=== PATIENT | male | born 1960 | race Caucasian/White ===

== ENCOUNTER 2020-03-27 07:45 | Outpatient (REF) | payer OTHER, SELFPAY ==
[2020-03-27 10:32] LABS: Basophils Percent Auto 0.2 % (0-2); Eosinophils Absolute Auto 0.1 X10*3/uL (0.0-0.4); Eosinophils Percent Auto 1.8 % (0-4); Hematocrit 43.8 % (42-52); Imm Gran Abs Auto 0.01 X10*3/uL (0.00-0.03); Imm Gran Pct Auto 0.2 % (0.0-0.4); Lymphocytes Absolute Auto 1.3 X10*3/uL (1.2-4.9); Lymphocytes Percent Auto 30.2 % (20-40); MANUAL DIFF FLAG NO; Mean Corpuscular HGB Conc 34.2 g/dl (31.0-36.0); Mean Corpuscular Volume 87.6 fL (80-98); Mean Platelet Volume 11.8 fL (9.4-12.4); Monocytes Absolute Auto 0.4 X10*3/uL (0.1-1.2); Monocytes Percent Auto 9.3 % (2-11); Neutrophils Absolute Auto 2.6 X10*3/uL (2.0-8.3); Neutrophils Percent Auto 58.3 % (45-73); Platelet Count 158 X10*3/uL (160-400); Red Cell Distribution Width 13.8 % (11.0-16.0); White Blood Count 4.4 X10*3/uL (4.8-10.8)
[2020-03-27 11:01] LABS: Alanine Aminotransferase 54 U/L (0-40); Albumin Level 4.8 g/dL (3.5-5.0); Alkaline Phosphatase 135 U/L (39-117); Anion Gap 13 (12-20); Aspartate Amino Transferase 34 U/L (5-37); Bilirubin Total 0.8 mg/dL (0.0-1.0); Blood Urea Nitrogen 14 mg/dL (9-16); Calcium 9.3 mg/dL (8.4-10.2); Carbon Dioxide 31 mmol/L (22-29); Chloride 105 mmol/L (96-108); Cholesterol 231 mg/dL; Estimated Glomerular Filt Rate > 60; Glucose Fasting 107 mg/dL (60-99); HDL Cholesterol 49 mg/dL; LDL Cholesterol Calculated 152 mg/dl; Potassium 4.5 mmol/l (3.3-5.1); Sodium 144 mmol/L (135-145); Total Protein 7.5 g/dL (6.5-8.0); Triglycerides 153 mg/dL
[2020-03-27 11:03] LABS: PSA,Total (Free>4and<10) 0.97 ng/mL (0.00-4.00); TSH reflex Free T4 5.11 mIU/mL (0.32-4.0)
[2020-03-27 11:41] LABS: Free T4 (Free Thyroxine) 0.88 ng/dL (0.71-1.85)
== END 2020-03-27 07:46 | disposition home or self-care (01) ==
LOC: HO.WFDLDS 07:45
PROVIDERS: PCP Internal Medicine; Visit Provider Physician Assistant
DX: E78.5 Hyperlipidemia, unspecified (principal); R73.01 Impaired fasting glucose; R97.20 Elevated prostate specific antigen [PSA]; Z83.49 Family history of other endocrine, nutritional and metabolic diseases
CPT/HCPCS: 36415; 80053; 80061; 84153; 84439; 84443; 85025

== ENCOUNTER 2020-07-20 14:29 | Outpatient (REF) | payer OTHER, SELFPAY ==
[2020-07-20 19:16] LABS: Free T4 (Free Thyroxine) 1.12 ng/dL (0.71-1.85); Thyroid Stimulating Hormone 0.31 uIU/mL (0.32-4.0)
== END 2020-07-20 14:30 | disposition home or self-care (01) ==
LOC: HO.MANLDS 14:29
PROVIDERS: PCP Internal Medicine; Visit Provider Internal Medicine
DX: E03.9 Hypothyroidism, unspecified (principal)
CPT/HCPCS: 36415; 84439; 84443

== ENCOUNTER 2021-01-02 08:10 | Outpatient (REF) | payer OTHER, SELFPAY ==
[2021-01-02 10:47] LABS: Cholesterol 239 mg/dL; HDL Cholesterol 51 mg/dL; LDL Cholesterol Calculated 163 mg/dl; Triglycerides 125 mg/dL
[2021-01-02 11:12] LABS: Free T4 (Free Thyroxine) 0.95 ng/dL (0.71-1.85); Thyroid Stimulating Hormone 5.56 uIU/mL (0.32-4.0)
== END 2021-01-02 08:11 | disposition home or self-care (01) ==
LOC: HO.WFDLDS 08:10
PROVIDERS: PCP Physician Assistant; Visit Provider Physician Assistant
DX: Z00.00 Encounter for general adult medical examination without abnormal findings (principal); E03.9 Hypothyroidism, unspecified
CPT/HCPCS: 36415; 80061; 84439; 84443

== ENCOUNTER 2021-02-13 07:17 | Outpatient (REF) | payer OTHER, SELFPAY ==
--- NOTE | ~2021-02-13 | XR_ITS ---
EXAMINATION: XR ELBOW, RIGHT CLINICAL INFORMATION: Pain and stiffness. History of previous elbow injury. COMPARISON: None TECHNIQUE: AP, lateral, and oblique views of the right elbow. FINDINGS: The radial head is absent. No fracture or dislocation is seen. 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 There is a joint effusion. There are some well-corticated soft tissue ossifications adjacent to the lateral humeral epicondyle and absent radial head. There is an elbow joint effusion. There are multiple small soft tissue foreign bodies seen in the posterior to the elbow joint. XR/XR elbow RT min 3V IMPRESSION: Absent radial head. 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 Multiple small soft tissue foreign bodies posterior to the elbow joint.
--- NOTE | ~2021-02-13 | XR_ITS ---
EXAMINATION: XR HAND, RIGHT CLINICAL INFORMATION: Right hand contracture COMPARISON: None TECHNIQUE: PA, lateral, and oblique views of the right hand. FINDINGS: The bones are osteopenic. No fracture or dislocation is seen. Joint spaces are normal. Soft tissues are normal. XR/XR hand RT min 3V IMPRESSION: Osteopenia. Otherwise unremarkable exam.
== END 2021-02-13 07:18 | disposition home or self-care (01) ==
LOC: HO.XRAY 07:17
PROVIDERS: PCP Internal Medicine; Visit Provider Physician Assistant
DX: M25.521 Pain in right elbow (principal); M25.541 Pain in joints of right hand
CPT/HCPCS: 73080; 73130

== ENCOUNTER 2021-03-19 07:58 | Outpatient (REF) | payer OTHER, SELFPAY | END 2021-03-19 07:59 | disposition home or self-care (01) | LOC: HO.WFDLDS 07:58 | PROVIDERS: Visit Provider Urology | DX: Z12.5 Encounter for screening for malignant neoplasm of prostate (principal); N40.1 Benign prostatic hyperplasia with lower urinary tract symptoms | CPT/HCPCS: 36415; 84153 ==

== ENCOUNTER 2021-07-19 08:06 | Outpatient (REF) | payer OTHER, SELFPAY ==
[2021-07-19 12:01] LABS: Cholesterol 214 mg/dL; HDL Cholesterol 48 mg/dL; LDL Cholesterol Calculated 142 mg/dl; Triglycerides 123 mg/dL
[2021-07-19 12:36] LABS: TSH reflex Free T4 1.71 uIU/mL (0.32-4.0)
[2021-07-22 14:56] LABS: Free Prostate Spec Ag 0.3 ng/mL; Percent Free Prostate Spec Ag 21 % (calc) (>25); Prostate Specific Ag Total 1.4 ng/mL (< OR = 4.0)
== END 2021-07-19 08:07 | disposition home or self-care (01) ==
LOC: HO.WFDLDS 08:06
PROVIDERS: Visit Provider Physician Assistant
DX: Z12.5 Encounter for screening for malignant neoplasm of prostate (principal); E03.9 Hypothyroidism, unspecified; E78.5 Hyperlipidemia, unspecified; R97.20 Elevated prostate specific antigen [PSA]
CPT/HCPCS: 36415; 80061; 84154; 84443

== ENCOUNTER 2022-01-21 07:58 | Outpatient (REF) | payer OTHER, SELFPAY ==
[2022-01-21 12:04] LABS: Cholesterol 216 mg/dL; HDL Cholesterol 47 mg/dL; LDL Cholesterol Calculated 145 mg/dl; Triglycerides 122 mg/dL
[2022-01-21 12:29] LABS: Free T4 (Free Thyroxine) 1.04 ng/dL (0.71-1.85); Thyroid Stimulating Hormone 1.31 uIU/mL (0.32-4.0)
[2022-01-23 12:21] LABS: Free Prostate Spec Ag 0.3 ng/mL; Percent Free Prostate Spec Ag 33 % (calc) (>25); Prostate Specific Ag Total 0.9 ng/mL (< OR = 4.0)
== END 2022-01-21 07:59 | disposition home or self-care (01) ==
LOC: HO.WFDLDS 07:58
PROVIDERS: Visit Provider Physician Assistant
DX: E03.9 Hypothyroidism, unspecified (principal); E78.5 Hyperlipidemia, unspecified; R97.20 Elevated prostate specific antigen [PSA]
CPT/HCPCS: 36415; 80061; 84154; 84439; 84443

== ENCOUNTER 2022-07-07 15:17 | Outpatient (REF) | payer OTHER, SELFPAY ==
--- NOTE | ~2022-07-07 | XR_ITS ---
EXAMINATION: XR LUMBOSACRAL SPINE CLINICAL INFORMATION: Radiculopathy COMPARISON: None available. TECHNIQUE: Three views of the lumbosacral spine. FINDINGS: Mild curvature of the mid lumbar spine to the left. Bone alignment is otherwise normal. No fracture or dislocation. Mild degenerative disc disease and spondylosis at T12-L1, L1-L2 and L2-L3. Lower lumbar spine facet arthritis. Left pelvic calcification measuring 3 mm, question calcified phlebolith versus distal ureteral stone. XR/XR lumbar spine 2-3V IMPRESSION: Degenerative changes.
== END 2022-07-07 15:18 | disposition home or self-care (01) ==
LOC: HO.XRAY 15:17
PROVIDERS: PCP Internal Medicine; Visit Provider Physician Assistant
DX: M54.16 Radiculopathy, lumbar region (principal)
CPT/HCPCS: 72100

== ENCOUNTER 2022-07-08 08:08 | Outpatient (REF) | payer OTHER, SELFPAY ==
[2022-07-08 10:36] LABS: MANUAL DIFF FLAG NO
[2022-07-08 10:41] LABS: Basophils Percent Auto 0.5 % (0-2); Eosinophils Absolute Auto 0.1 X10*3/uL (0.0-0.4); Eosinophils Percent Auto 2.8 % (0-4); Hematocrit 42.2 % (42.0-52.0); Hemoglobin 14.8 g/dl (14.0-18.0); Imm Gran Abs Auto 0.02 X10*3/uL (0.00-0.03); Imm Gran Pct Auto 0.5 % (0.0-0.4); Lymphocytes Absolute Auto 1.1 X10*3/uL (1.2-4.9); Lymphocytes Percent Auto 25.3 % (20-40); Mean Corpuscular HGB Conc 35.1 g/dl (31.0-36.0); Mean Corpuscular Hemoglobin 31.2 pg (27.0-33.0); Mean Platelet Volume 11.5 fL (9.4-12.4); Monocytes Absolute Auto 0.4 X10*3/uL (0.1-1.2); Monocytes Percent Auto 9.4 % (2-11); Neutrophils Absolute Auto 2.6 x10*3/uL (2.0-8.3); Neutrophils Percent Auto 61.5 % (45-73); Platelet Count 166 X10*3/uL (160-400); Red Blood Count 4.74 X10*6/uL (4.60-5.80); Red Cell Distribution Width 13.8 % (11.0-16.0); White Blood Count 4.3 X10*3/uL (4.8-10.8)
[2022-07-08 11:18] LABS: Alanine Aminotransferase 40 U/L (0-40); Albumin Level 4.4 g/dL (3.5-5.0); Alkaline Phosphatase 117 U/L (39-117); Anion Gap 12 (12-20); Aspartate Amino Transferase 28 U/L (5-37); Bilirubin Total 0.7 mg/dL (0.0-1.0); Blood Urea Nitrogen 12 mg/dL (9-16); Carbon Dioxide 27 mmol/L (22-29); Chloride 107 mmol/L (96-108); Cholesterol 206 mg/dL; Estimated Glomerular Filt Rate > 60; Glucose Random 86 mg/dL (60-115); HDL Cholesterol 45 mg/dL; LDL Cholesterol Calculated 128 mg/dl; Sodium 142 mmol/L (135-145); Total Protein 6.7 g/dL (6.5-8.0); Triglycerides 166 mg/dL
[2022-07-08 11:35] LABS: Prostate Specific Antigen 0.85 ng/mL (<0.05-4.0)
== END 2022-07-08 08:09 | disposition home or self-care (01) ==
LOC: HO.WFDLDS 08:08
PROVIDERS: Visit Provider Physician Assistant
DX: Z00.00 Encounter for general adult medical examination without abnormal findings (principal); Z12.5 Encounter for screening for malignant neoplasm of prostate; Z20.2 Contact with and (suspected) exposure to infections with a predominantly sexual mode of transmission
CPT/HCPCS: 36415; 80053; 80061; 84153; 85025

== ENCOUNTER 2022-07-21 10:32 | Outpatient (REF) | payer OTHER, SELFPAY ==
[2022-07-21 14:13] LABS: Appearance Urine Clear; Color Urine Yellow; Glucose Urine UA Negative (Negative); Leukocyte Esterase Urine Negative (Negative); Nitrite Urine Negative (Negative); Specific Gravity - Urine 1.015 (1.005-1.025); Urine Blood Negative (Negative); Urine Ketones Negative (Negative); Urine Protein Negative (Neg-Trace)
[2022-07-21 14:16] LABS: Bacteria Urine None Seen (None Seen); Hyaline Casts Urine 0-2 /LPF (0-2); RBC Urine 0-2 /HPF (0-2); Squamous Epithelial Cell Urine 0-2 /HPF (0-2); WBC Urine 0-5 /HPF (0-5)
== END 2022-07-21 10:33 | disposition home or self-care (01) ==
LOC: HO.WFDLNP 10:32
PROVIDERS: Visit Provider Internal Medicine
DX: R30.9 Painful micturition, unspecified (principal)
CPT/HCPCS: 81001

== ENCOUNTER 2022-07-22 14:11 | Outpatient (REF) | payer OTHER, SELFPAY ==
--- NOTE | ~2022-07-22 | CT_ITS ---
EXAMINATION: CT abdomen pelvis wo IV con CLINICAL INFORMATION: Reason for Exam right flank pain COMPARISON: No prior CT available for comparison. TECHNIQUE: Multidetector volumetric imaging was performed from the superior aspect of the liver through the pubic symphysis noncontrasted study. Sagittal and coronal reformatted images were obtained on the technologist's workstation. This CT examination was performed using dose optimization techniques as appropriate, variously including the following: *Automated exposure control *Adjustment of mA and/or kV according to patient size (this includes techniques or standardized protocols for targeted exams where dose is matched to indication/reason for exam; i.e. extremities or head) *Use of iterative reconstruction technique DLP: 422 mGy-cm FINDINGS: LOWER THORAX: Included lung bases are clear. HEPATOBILIARY: There is hypodensity structure probably a cyst in the right lobe of the liver measures 1.7 x 1.1 cm, not well characterized due to lack of contrast, liver otherwise unremarkable. GALLBLADDER: Gallbladder unremarkable. SPLEEN: Spleen is borderline enlarged measuring up to 12.6 x 8.7 cm. No focal splenic lesion. PANCREAS: No focal mass or ductal dilatation. STOMACH AND GASTROINTESTINAL TRACT: Stomach is grossly unremarkable. There is diverticulosis especially of the sigmoid colon without CT evidence of acute diverticulitis. No CT evidence of appendicitis. ADRENALS: No adrenal nodules. KIDNEYS/URETERS: There is mild to moderate left hydronephrosis with a transition at the UPJ, no obstructing stone however is present this could be sequela of recently passed stone, nephritis, crossing vessel, among others. Perinephric fat remain clear. Right kidney is normal unremarkable. Both ureters normal in size. URINARY BLADDER: Partially decompressed. PELVIC VISCERA: Unremarkable PERITONEUM: No free air or fluid. LYMPH NODES: No lymphadenopathy. VASCULAR:Abdominal aorta normal in size, no aneurysm found. BONES, ABDOMINAL WALL AND SOFT TISSUES: Age-appropriate changes of the spine and skeletal system, no destructive osteolytic or osteosclerotic bone lesion found CT/CT abdomen pelvis wo IV con IMPRESSION: * Mild to moderate left hydronephrosis with transition at the ureteropelvic junction, no obstructing stone found , this could be sequela of recently passed stone, nephritis, crossing vessel, congenital among others, if patient remain symptomatic may consider correlation with follow-up CT with contrast, CT urogram. * Diverticulosis without evidence of acute diverticulitis. * Hypodense structure in the right lobe of the liver probably a cyst, not well characterized due to lack of contrast. * Spleen is borderline enlarged.
== END 2022-07-22 14:12 | disposition home or self-care (01) ==
LOC: HO.CT 14:11
PROVIDERS: PCP Internal Medicine; Visit Provider Internal Medicine
DX: N20.2 Calculus of kidney with calculus of ureter (principal)
CPT/HCPCS: 74176

== ENCOUNTER 2022-07-24 19:03 | Outpatient (REF) | payer OTHER, SELFPAY ==
--- NOTE | ~2022-07-24 | MR_ITS ---
EXAMINATION: MR LUMBAR SPINE WITHOUT CONTRAST CLINICAL INFORMATION: Radiculopathy. Evaluate for disc herniation. COMPARISON: X-ray dated 07/07/2022. TECHNIQUE: Multiplanar, multisequence imaging was obtained. FINDINGS: VERTEBRAL BODIES AND PARASPINAL STRUCTURES: The marrow signal is heterogeneous with regions of fatty change. No compression fractures identified. There is a mild anterolisthesis at the L4-L5 level. No marrow or soft tissue edema is seen. The paraspinal soft tissues are normal. CONUS MEDULLARIS AND CAUDA EQUINE: The distal cord, conus tip, and cauda equina nerve roots are normal. SPINAL LEVELS: L1-L2: Small right paracentral disc protrusion and mild diffuse disc bulge with mild facet arthropathy. No central canal stenosis or foraminal narrowing. L2-L3: Small central disc protrusion and mild facet arthropathy. No central canal stenosis or foraminal narrowing. L3-L4: Mild facet arthropathy. No disc abnormality. No central canal stenosis or foraminal encroachment. L4-L5: Mild anterolisthesis and endplate spurring with a mild generalized disc bulge and facet arthropathy. No central canal stenosis. Mild bilateral foraminal narrowing. L5-S1: Shallow posterior disc bulge and mild facet arthropathy without central canal stenosis or foraminal narrowing. MR/MR lumbar spine wo con IMPRESSION: Mild multilevel lumbar spondylosis. Small disc protrusions at the L1-L2 and L2-L3 levels. Mild anterolisthesis and disc bulge at the L4-L5 level with mild foraminal encroachment. No central canal stenosis.
== END 2022-07-24 19:04 | disposition home or self-care (01) ==
LOC: HO.MRI 19:03
PROVIDERS: PCP Internal Medicine; Visit Provider Physician Assistant
DX: M54.16 Radiculopathy, lumbar region (principal)
CPT/HCPCS: 72148

== ENCOUNTER 2022-08-13 16:20 | Outpatient (REF) | payer OTHER, SELFPAY ==
[2022-08-13 19:17] LABS: Appearance Urine Clear; Color Urine Yellow; Glucose Urine UA Negative (Negative); Leukocyte Esterase Urine Negative (Negative); Nitrite Urine Negative (Negative); PH 5.5 (5.0-9.0); Specific Gravity - Urine 1.025 (1.005-1.025); Urine Blood Negative (Negative); Urine Ketones Negative (Negative); Urine Protein Negative (Neg-Trace)
== END 2022-08-13 16:21 | disposition home or self-care (01) ==
LOC: HO.MANLNP 16:20
PROVIDERS: Visit Provider Physician Assistant
DX: N13.2 Hydronephrosis with renal and ureteral calculous obstruction (principal)
CPT/HCPCS: 81003

== ENCOUNTER 2022-09-08 14:49 | Outpatient (REF) | payer OTHER, SELFPAY ==
--- NOTE | ~2022-09-08 | US_ITS ---
EXAMINATION: US RETROPERITONEAL LIMITED (RENAL ONLY) CLINICAL INFORMATION: Hydronephrosis with renal and ureteral calculus obstruction. COMPARISON: CT abdomen and pelvis without contrast 07/22/2022. Ultrasound abdomen complete 08/11/2018. MR abdomen without and with contrast 08/27/2017. Ultrasound abdomen complete 02/17/2017. TECHNIQUE: Real-time imaging of the kidneys. FINDINGS: RIGHT KIDNEY: 11.4 x 5.4 x 5.2 cm (SAG x AP x TRV). The kidney is normal in size, contour, and echogenicity. Renal cortical thickness is normal. No renal calculi or hydronephrosis. Parapelvic cysts are noted, the largest measuring approximately 1.2 cm. LEFT KIDNEY: 11.9 x 5.8 x 4.6 cm (SAG x AP x TRV). The kidney is normal in size, contour, and echogenicity. Renal cortical thickness is normal. No renal calculi or hydronephrosis. Parapelvic cysts are noted, largest measuring approximately 1.9 cm. US/US renal BI IMPRESSION: Suspected bilateral parapelvic cysts. If there is concern for hydronephrosis, further evaluation with CT urogram can be obtained.
== END 2022-09-08 14:50 | disposition home or self-care (01) ==
LOC: HO.US 14:49
PROVIDERS: Visit Provider Physician Assistant
DX: N13.2 Hydronephrosis with renal and ureteral calculous obstruction (principal)
CPT/HCPCS: 76775

== ENCOUNTER 2023-08-04 07:54 | Outpatient (REF) | payer OTHER, SELFPAY ==
[2023-08-04 11:52] LABS: MANUAL DIFF FLAG NO
[2023-08-04 12:00] LABS: Estimated Average Glucose 97 mg/dL
[2023-08-04 12:04] LABS: Basophils Percent Auto 0.2 % (0-2); Eosinophils Absolute Auto 0.1 X10*3/uL (0.0-0.4); Eosinophils Percent Auto 2.6 % (0-4); Hematocrit 44.3 % (42.0-52.0); Hemoglobin 15.7 g/dl (14.0-18.0); Imm Gran Abs Auto 0.01 X10*3/uL (0.00-0.03); Imm Gran Pct Auto 0.2 % (0.0-0.4); Lymphocytes Percent Auto 20.5 % (20-40); Mean Corpuscular HGB Conc 35.4 g/dl (31.0-36.0); Mean Corpuscular Volume 87.4 fL (80.0-98.0); Mean Platelet Volume 12.1 fL (9.4-12.4); Monocytes Absolute Auto 0.4 X10*3/uL (0.1-1.2); Monocytes Percent Auto 7.5 % (2-11); Neutrophils Absolute Auto 3.2 x10*3/uL (2.0-8.3); Platelet Count 148 X10*3/uL (160-400); Red Blood Count 5.07 X10*6/uL (4.60-5.80); Red Cell Distribution Width 14.1 % (11.0-16.0); White Blood Count 4.7 X10*3/uL (4.8-10.8)
[2023-08-04 12:32] LABS: Alanine Aminotransferase 66 U/L (0-40); Albumin Level 4.4 g/dL (3.5-5.0); Alkaline Phosphatase 107 U/L (39-117); Anion Gap 15 (12-20); Aspartate Amino Transferase 42 U/L (5-37); Bilirubin Total 0.7 mg/dL (0.0-1.0); Blood Urea Nitrogen 10 mg/dL (9-16); Calcium 9.5 mg/dL (8.4-10.2); Carbon Dioxide 24 mmol/L (22-29); Chloride 107 mmol/L (96-108); Cholesterol 217 mg/dL (<200); Estimated Glomerular Filt Rate > 60; Glucose Random 108 mg/dL (60-115); HDL Cholesterol 50 mg/dL (>40); LDL Cholesterol Calculated 140 mg/dL (<100); Potassium 3.8 mmol/L (3.3-5.1); Sodium 142 mmol/L (135-145); Total Protein 7.4 g/dL (6.5-8.0); Triglycerides 136 mg/dL (<150)
[2023-08-06 11:28] LABS: Free Prostate Spec Ag 0.4 ng/mL; Percent Free Prostate Spec Ag 29 % (calc) (>25); Prostate Specific Ag Total 1.4 ng/mL (< OR = 4.0)
== END 2023-08-04 07:55 | disposition home or self-care (01) ==
LOC: HO.WFDLDS 07:54
PROVIDERS: Visit Provider Physician Assistant
DX: Z13.89 Encounter for screening for other disorder (principal)
CPT/HCPCS: 36415; 80053; 80061; 83036; 84154; 85025

== ENCOUNTER 2024-08-29 07:31 | Outpatient (REF) | payer MEDICARE, SELFPAY ==
[2024-08-29 11:23] LABS: MANUAL DIFF FLAG NO
[2024-08-29 11:43] LABS: Basophils Percent Auto 0.5 % (0-2); Eosinophils Absolute Auto 0.1 X10*3/uL (0.0-0.4); Eosinophils Percent Auto 3.1 % (0-4); Hematocrit 44.1 % (42.0-52.0); Hemoglobin 15.2 g/dl (14.0-18.0); Imm Gran Abs Auto 0.01 X10*3/uL (0.00-0.03); Imm Gran Pct Auto 0.2 % (0.0-0.4); Mean Corpuscular HGB Conc 34.5 g/dl (31.0-36.0); Mean Corpuscular Hemoglobin 29.9 pg (27.0-33.0); Mean Corpuscular Volume 86.6 fL (80.0-98.0); Mean Platelet Volume 12.3 fL (9.4-12.4); Monocytes Absolute Auto 0.3 X10*3/uL (0.1-1.2); Monocytes Percent Auto 6.3 % (2-11); Neutrophils Absolute Auto 2.8 x10*3/uL (2.0-8.3); Neutrophils Percent Auto 66.9 % (45-73); Platelet Count 143 X10*3/uL (160-400); Red Blood Count 5.09 X10*6/uL (4.60-5.80); Red Cell Distribution Width 13.8 % (11.0-16.0); White Blood Count 4.1 X10*3/uL (4.8-10.8)
[2024-08-29 11:56] LABS: Estimated Average Glucose 100 mg/dL; Hemoglobin A1c % 5.1 % (<6.0)
[2024-08-29 12:13] LABS: Prostate Specific Antigen 1.25 ng/mL (<0.05-4.0)
[2024-08-29 12:22] LABS: Alanine Aminotransferase 72 U/L (0-40); Albumin Level 4.6 g/dL (3.5-5.0); Alkaline Phosphatase 113 U/L (39-117); Anion Gap 12 (12-20); Aspartate Amino Transferase 48 U/L (5-37); Bilirubin Total 0.7 mg/dL (0.0-1.0); Blood Urea Nitrogen 11 mg/dL (9-16); Calcium 9.5 mg/dL (8.4-10.2); Carbon Dioxide 29 mmol/L (22-29); Chloride 106 mmol/L (96-108); Cholesterol 224 mg/dL (<200); Estimated Glomerular Filt Rate > 60; Glucose Random 98 mg/dL (60-115); HDL Cholesterol 51 mg/dL (>40); LDL Cholesterol Calculated 142 mg/dL (<100); Potassium 3.9 mmol/L (3.3-5.1); Sodium 143 mmol/L (135-145); Total Protein 7.3 g/dL (6.5-8.0); Triglycerides 159 mg/dL (<150)
== END 2024-08-29 07:32 | disposition home or self-care (01) ==
LOC: HO.WFDLDS 07:31
PROVIDERS: Visit Provider Internal Medicine
DX: Z13.89 Encounter for screening for other disorder (principal)
CPT/HCPCS: 36415; 80053; 80061; 83036; 84153; 85025

== ENCOUNTER 2024-09-09 08:15 | Outpatient (REF) | payer MEDICARE, SELFPAY ==
--- NOTE | ~2024-09-09 | XR_ITS ---
EXAMINATION: XR CERVICAL SPINE CLINICAL INFORMATION: CERVICALGIA COMPARISON: None available. TECHNIQUE: 3 views of the cervical spine were obtained. FINDINGS: Craniocervical junction is intact. Marginal osteophyte formation at C4-5 and C5-6 level. No acute cortical disruption. No gross malalignment. No lytic or blastic lesions. XR/XR cervical spine 3V IMPRESSION: Spondylosis C4-5 and C5-6. Electronically signed by: Charanjit Sims MD 09/09/2024 09:25 AM EDT
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
== END 2024-09-09 08:16 | disposition home or self-care (01) ==
LOC: HO.XRAY 08:15
PROVIDERS: PCP Internal Medicine; Visit Provider Physician Assistant
DX: M54.2 Cervicalgia (principal)
CPT/HCPCS: 72040

== ENCOUNTER → 2024-09-09 08:22 | Outpatient (BNV) | payer MEDICARE, SELFPAY | PROVIDERS: PCP Internal Medicine; Visit Provider Radiology Diagnostic Radiology | DX: M47.812 Spondylosis without myelopathy or radiculopathy, cervical region (principal) | CPT/HCPCS: 72040 ==

== ENCOUNTER 2024-09-26 17:37 | Outpatient (REF) | payer MEDICARE, SELFPAY ==
--- NOTE | ~2024-09-26 | MR_ITS ---
EXAMINATION: MR CERVICAL SPINE WITHOUT CONTRAST CLINICAL INFORMATION: Radiculopathy to left upper extremity. Numbness and tingling. COMPARISON: Correlated to x-ray dated September 09, 2024. TECHNIQUE: MRI of the cervical spine was obtained using routine sequences without contrast. FINDINGS: Craniocervical junction is intact. No bone marrow STIR signal abnormality. Normal position of the cerebellar tonsils. Small marginal osteophyte formation C5-6 and to a lesser extent C4-5. Intrinsic hyperintense T1 bone lesion at T2 vertebra. Modic type II endplate changes at C5-6 and to a lesser extent C4-5 and C7-T1 levels. 10% superior endplate volume loss at T2, T3 vertebral bodies. Cervical spinal cord signal is normal. C2-3: No disc herniation. No neuroforamina stenosis. C3-4: Central disc osteophyte complex formation resulting in ventral indentation to the thecal sac. Ligamentum flavum hypertrophy. Right facet joint hypertrophy. Right neuroforamina narrowing. C4-5: Central disc osteophyte compresses formation resulting in ventral spinal cord deformity. Ligamentum flavum hypertrophy. Right facet joint hypertrophy. Right neuroforamina narrowing. C5-6: Central disc osteophyte complex formation resulting in ventral spinal cord deformity. Ligamentum flavum hypertrophy. Right facet joint hypertrophy. Right neuroforamina and stenosis. C6-7: No disc herniation. No neuroforamina stenosis. C7-T1: Central disc osteophyte complex formation. No neuroforamina stenosis. No prevertebral compartment hematoma, mass or fluid collection. Flow-void signal within the main vessels is normal. Left vertebral artery is dominant. Nonspecific prominent cervical lymph nodes. MR/MR cervical spine wo con IMPRESSION: Multilevel cervical spondylosis C3 C7 more pronounced at C5-6 and to a lesser extent C4-5 resulting in multilevel right-sided neuroforamina narrowing. No cord compression, cord edema and or myelopathy. Electronically signed by: Charanjit Sims MD 09/27/2024 07:06 AM EDT
--- OUTSIDE RECORDS SUMMARY | 2024-09-26 17:39 | XMS_ITS | Data Portability ---
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 right upper thigh, improving hearing left ear worseningdiscussed f/u with audio as per previous conversation spasms in his back and buttock bilateralworsened with sitting the patient has h/x of disc protrusions and degenerative changes in his backthe patient discussed f/u with uro, declines at this timePSA is stablewill cont to monitor ROB CTOE [address] [place], [address], [facility] 08/19/2023 16:09:57 5 text/html Annual WellnessReported bypatient.Diet and Nutrition:healthy [...] side, radiates into his arm ROB COTE [address] [place] [address], [id number], [facility] 09/07/2024 15:54:04
== END 2024-09-26 17:38 | disposition home or self-care (01) ==
LOC: HO.MRI 17:37
PROVIDERS: PCP Internal Medicine; Visit Provider Physician Assistant
DX: M54.12 Radiculopathy, cervical region (principal)
CPT/HCPCS: 72141

== ENCOUNTER → 2024-09-26 17:48 | Outpatient (BNV) | payer MEDICARE, SELFPAY | PROVIDERS: PCP Internal Medicine; Visit Provider Radiology Diagnostic Radiology | DX: M47.812 Spondylosis without myelopathy or radiculopathy, cervical region (principal) | CPT/HCPCS: 72141 ==

== ENCOUNTER 2024-10-05 07:38 | Outpatient (REF) | payer MEDICARE, SELFPAY ==
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
[2024-10-05 11:31] LABS: MANUAL DIFF FLAG NO
[2024-10-05 11:39] LABS: Hematocrit 41.9 % (42.0-52.0); Hemoglobin 14.7 g/dl (14.0-18.0); Imm Gran Abs Auto 0.02 X10*3/uL (0.00-0.03); Imm Gran Pct Auto 0.5 % (0.0-0.4); Lymphocytes Absolute Auto 1.0 X10*3/uL (1.2-4.9); Mean Corpuscular HGB Conc 35.1 g/dl (31.0-36.0); Mean Corpuscular Hemoglobin 29.8 pg (27.0-33.0); Mean Corpuscular Volume 85.0 fL (80.0-98.0); NRBC Abs Auto 0.000 X10*3/uL (0.0-0.012); NRBC Pct Auto 0.0 /100WBC (0.0-0.2); Platelet Count 150 X10*3/uL (160-400); Red Blood Count 4.93 X10*6/uL (4.60-5.80); White Blood Count 4.3 X10*3/uL (4.8-10.8)
== END 2024-10-05 07:39 | disposition home or self-care (01) ==
LOC: HO.WFDLDS 07:38
PROVIDERS: Visit Provider Physician Assistant
DX: D72.818 Other decreased white blood cell count (principal)
CPT/HCPCS: 36415; 85025